=== PATIENT | female | born 1990 | race Caucasian/White ===

== ENCOUNTER 2017-04-19 21:49 | Outpatient (CLI) | payer MEDICAID ==
[~2017-04-19] VITALS: Ht 160 cm; Wt 87.9 kg
[2017-04-19 22:28] VITALS: Ht 160 cm; Wt 87.9 kg
[2017-04-19 22:29] VITALS: BP 100/62; PULSE 83; RESP 18
--- NOTE | 2017-04-19 23:10 | RADRPT ---
PROCEDURE: US biophysical profile. CLINICAL INDICATION: Decreased motion. TECHNIQUE: Multiple sonographic images of the uterus were obtained. The images were revi ewed on a PACS workstation. COMPARISON: No prior studies are available for comparison. FINDINGS: There is a single live intrauterine gestation. heart rate is 139 beats per minute. The position is cephalic. The placenta is anterior grade II with no abruption or previa. The MIGUEL ANGEL is 11.4 cm. (Normal = 5-20 cm.) Breathing Movement: 2 Gross Body Movement: 2 Tone: 2 Qualitative Amniotic Fluid Volume: 2 TOTAL: 8 IMPRESSION: 1. The biophysical score is 8/8. RPTAT: QQ .Kanu Hooper MD, MD Date Time Electronically viewed and signed by .Kanu Hooper MD, on 04/19/2017 23:09 .R/
[2017-04-19 23:40] LABS: BASOPHIL # 0.1 10^3/ul (0.0-0.1); BASOPHILS % 0.4 % (0.0-2.0); EOSINOPHILS # 0.1 10^3/ul (0.0-0.5); HEMATOCRIT 36.3 % (37.0-47.0); HEMOGLOBIN 12.6 g/dl (12.0-16.0); LYMPHOCYTES # 3.2 10^3/ul (0.8-2.9); LYMPHOCYTES % 28.1 % (15.0-51.0); MEAN CORPUSCULAR HEMOGLOBIN 31.4 pg (29.0-33.0); MEAN CORPUSCULAR HGB CONC 34.7 g/dl (32.0-37.0); MEAN CORPUSCULAR VOLUME 90.5 fl (82.0-101.0); MEAN PLATELET VOLUME 11.1 fl (7.4-10.4); MONOCYTES % 8.8 % (0.0-11.0); NEUTROPHILS % 61.4 % (39.0-77.0); PLATELET COUNT 291 10^3/UL (140-415); RED BLOOD COUNT 4.01 10^6/ul (4.20-5.40); RED CELL DISTRIBUTION WIDTH 12.4 % (11.5-14.5); WHITE BLOOD COUNT 11.5 10^3/ul (4.8-10.8)
[2017-04-19 23:44] LABS: ADD UMIC YES; UR ASCORBIC ACID NEGATIVE (NEGATIVE); UR BACTERIA FEW /HPF (NONE SEEN); UR BILIRUBIN (Dip) NEGATIVE (NEGATIVE); UR BLOOD (Dip) NEGATIVE (NEGATIVE); UR BUDDING YEAST FEW /HPF (NONE SEEN); UR CLARITY CLEAR (CLEAR); UR COLOR STRAW (YELLOW); UR GLUCOSE (Dip) NEGATIVE (NEGATIVE); UR KETONES (Dip) NEGATIVE (NEGATIVE); UR LEUKOCYTE ESTERASE (Dip) 2+ Leu/ul (NEGATIVE); UR NITRITE (Dip) NEGATIVE (NEGATIVE); UR RBC 1 /HPF (0-5); UR SPECIFIC GRAVITY (Dip) 1.003 (1.003-1.030); UR SQUAMOUS EPITHELIAL CELL FEW /HPF (FEW); UR TOTAL PROTEIN (Dip) NEGATIVE (NEGATIVE); UR UROBILINOGEN (Dip) NEGATIVE (NEGATIVE)
--- NOTE | 2017-04-20 01:15 | TRIAGE ---
OB Triage Datetime Report Generated by CPN: 04/20/2017 01:15 Datetime: 04/19/2017 22:48 Labor Evaluation Frequency: IRREGULAR Monitor Mode: External Quality: Mild Pattern: Normal: <= 5 Contractions in 10 Minutes Resting Tone Oyens: Relaxed Heart Rate FHR Baseline Rate: 145 Monitor Mode: External US FHR Baseline Changes: No Baseline Change Variability: Moderate 6-25 bpm Accelerations: 15X15 Decelerations: None Category: Category I Datetime: 04/19/2017 22:21 Stage of : OB Triage Arrived By: Wheelchair Arrived From: Home Chief Complaint: LL ABDONINAL PAIN Movement: Present Vaginal Bleeding: None Recent Sexual Intercouse: Denies Patient Complaints: None Time Provider Notified: 04/19/2017 22:19 Provider Notified: DR ALFARO (Annotations: Data stored by CPN on behalf of user) Initial Plan: EFM, CALL MD Maternal Assessment Level of Consciousness: Fully Conscious DTR's/Clonus: DTRs 2+; No Clonus Headache: Denies Blurred Vision: No Respiratory Effort: Unlabored; Regular Rhythm; Equal Expansion Breath Sounds, Left: Clear and Equal Breath Sounds, Right: Clear and Equal Nausea/Vomiting: Denies RUQ Epigastric Pain: Denies Lower Extremities Edema: None Degree: None Upper Extremities Edema: None Degree: None Facial Edema: None Temperature Route: Oral Fall Risk Assessment History of Falling: (0) No Secondary Diagnosis: (0) No Ambulatory Aid: (0) Bedrest/Nurse Assist IV Therapy: (0) No Gait: (0) Normal/Bedrest/Immobile Mental Status: (0) Oriented to Own Ability Fall Score: 0 Fall Risk Score Definition: No Risk: No action required Monitor Mode: External Monitor Mode: External US Pain Assessment Pain Scale: 8 Pain Presence: Constant Pain Type: Pressure Pain Location: Abdomen
--- NOTE | 2017-04-20 06:56 | PN ---
Triage Information Date/Time Reason for visit: Abdominal pain Weeks of Gestation 38 1/7 wks /Para Diabetes: none Hypertention: none Objective Vital Signs Date Time Temp Pulse Resp B/P Pulse Ox O2 Delivery O2 Flow Rate FiO2 04/19/17 22:29 97.6 83 18 100/62 Room Air Heart Rate: 140's Contractions: None Exam General: Patient appears well, alert and oriented, NAD, appropriate mood and affect ABD: gravid, soft, tender at LLQ. No tenderness other part of abdomen. No rebound or guarding. Back: No CVA tenderness (B/L) LE: No clubbing, cyanosis, edema, thigh or calf tenderness bilaterally FHT: 140 bpm , moderate variability with acceleration, no deceleration-category I Contractions: None Results/Medications Result Diagram: 04/19/17 2312 Results 24 hrs Disposition: Transfer to ER Assessment/Plan 27 Year-old with SIUP at 38 1/7 weeks with abdominal pain and nausea. - FHR: No sign of metabolic acidosis- Category I - Continuous EFM, toco - US performed and discussed with patient - Contractions: None. - Symptoms and sign of labor, preeclampsia, kick count discussed with patient, she voiced understanding. All of her questions answered. - Patient was transferred to ER for further evaluation SUSAN ALFARO Apr 20, 2017 06:56
== END 2017-04-20 00:20 | disposition home or self-care (01) ==
LOC: OBT 21:49 → L-D 21:52 → OBT 04-20 00:20
PROVIDERS: ATTEND Obstetrics & Gynecology
DX: O26.893 Other specified pregnancy related conditions, third trimester (principal); R10.32 Left lower quadrant pain; O21.0 Mild hyperemesis gravidarum; Z3A.38 38 weeks gestation of pregnancy
CPT/HCPCS: 76818; 81001; 85025; Z7500; G0463

== ENCOUNTER 2017-04-23 15:27 | Inpatient (IN) | payer MEDICAID ==
[~2017-04-23] VITALS: Ht 160 cm; Wt 89.0 kg
[2017-04-23 15:44] VITALS: BP 111/81; PULSE 102; Ht 160 cm; Wt 89.0 kg
[2017-04-23] MEDS ORDERED: PNV11TAB PO (15:46)
[2017-04-23] MEDS ORDERED: LIDOCAINE 1% (MPF) 30 ML INJ INJ PRN (16:00)
[2017-04-23] MEDS ORDERED: METHYLERGONOVINE 0.2 MG INJ IM PRN (16:00)
[2017-04-23] MEDS ORDERED: AMPICILLIN 2 GM/NS (PMX) 100 ML IV ONE (16:00)
[2017-04-23] MEDS ORDERED: BUTORPHANOL 2 MG INJ IV PRN ×2 (16:00)
[2017-04-23] MEDS ORDERED: OXYTOCIN 30 UNITS/LR 500 ML IV SCH (16:00)
[2017-04-23] MEDS ORDERED: CARBOPROST 250 MCG INJ IM PRN (16:00)
[2017-04-23] MEDS ORDERED: OXYTOCIN 30 UNITS/LR 500 ML IV PRN (16:00)
[2017-04-23] MEDS ORDERED: LACTATED RINGER'S 1,000 ML IV PRN (16:00)
[2017-04-23] MEDS ORDERED: MISOPROSTOL 200 MCG TAB PR PRN (16:00)
[2017-04-23 16:57] LABS: BASOPHILS % 0.2 % (0.0-2.0); EOSINOPHILS % 0.4 % (0.0-7.0); HEMATOCRIT 36.8 % (37.0-47.0); HEMOGLOBIN 12.7 g/dl (12.0-16.0); LYMPHOCYTES # 2.2 10^3/ul (0.8-2.9); LYMPHOCYTES % 23.6 % (15.0-51.0); MEAN CORPUSCULAR HEMOGLOBIN 31.1 pg (29.0-33.0); MEAN CORPUSCULAR HGB CONC 34.5 g/dl (32.0-37.0); MEAN CORPUSCULAR VOLUME 90.2 fl (82.0-101.0); MEAN PLATELET VOLUME 11.1 fl (7.4-10.4); MONOCYTE # 0.8 10^3/ul (0.3-0.9); MONOCYTES % 9.1 % (0.0-11.0); NEUTROPHIL # 6.2 10^3/ul (1.6-7.5); NEUTROPHILS % 66.4 % (39.0-77.0); PLATELET COUNT 274 10^3/UL (140-415); RED BLOOD COUNT 4.08 10^6/ul (4.20-5.40); RED CELL DISTRIBUTION WIDTH 12.8 % (11.5-14.5); WHITE BLOOD COUNT 9.3 10^3/ul (4.8-10.8)
[2017-04-23 17:13] LABS: INR 0.9; PROTIME 12.1 Sec (12.2-14.2); PT RATIO 0.9
[2017-04-23 17:14] LABS: PARTIAL THROMBOPLASTIN TIME 26.4 Sec (25.0-35.0)
[2017-04-23] MEDS: LACTATED RINGER'S 1,000 ML IV SCH ×2 (17:16→19:02)
[2017-04-23] MEDS ORDERED: FENTAnyl 2MCG/ML-ROPIV 0.2% 100 ML ONE (17:57)
[2017-04-23] MEDS ORDERED: FENTAnyl 2MCG/ML-ROPIV 0.2% 100 ML BAG EPI SCH (18:30)
[2017-04-23] MEDS ORDERED: ZOLPIDEM 5 MG TAB PO PRN (18:30)
[2017-04-23] MEDS ORDERED: DIPHENHYDRAMINE 50 MG INJ IV PRN (18:30)
[2017-04-23] MEDS ORDERED: ONDANSETRON 4 MG INJ IV PRN (18:30)
[2017-04-23] MEDS ORDERED: NALOXONE (0.4 MG/ML) INJ IV PRN (18:30)
--- NOTE | 2017-04-23 18:47 | HP ---
Date/Time of Note Date/Time of Note DATE: 04/23/17 TIME: 18:41 OB - History Hx of Present Free Text/Dictation 27 years old female 0010 EDC May 10, 2017 admitted to [facility] is 37 weeks and 4 in early labor pelvic examination on admission cervix 3 cm dilated 100% effaced vertex at -2 stay contraction mild to moderate 5-2 minutes apart, Chief Complaint: Labor contraction Estimated Due Date: May 10, 2017 : 2 Para: 0 Spontaneous : 1 Care: Good Care Ultrasounds: Normal mid trimester US Obstetrical Complications: None Medical Complications: None Past Family/Social History * Past Medical, Surgical, Family and Obstetric Histories reviewed from chart. Rubella: immune RPR/VDRL: Negative GBS Status: Negative OB Admission Exam Vital Signs Vital Signs Vital Signs Date Time Temp Pulse Resp B/P Pulse Ox O2 Delivery O2 Flow Rate FiO2 04/23/17 15:44 97.7 102 111/81 Physical Exam HEENT: WNL Heart: Rhythm Normal Lungs: Clear, Equal Abdomen: WNL Extremities: Normal Reflexes: Normal Cervical Dilatation: 3cm Effacement: 100% Station: -2 Membranes: Intact Heart Rate: 140's Accelerations: Accelerations Present Decelerations: No Decelerations Varibility: Moderate Contractions on Admission: 6-10 Minutes Apart Last 72 hours Lab Results CBC & BMP 04/23/17 16:30 OB Assessment/Plan Reason for admission: other (37 weeks 4 days admitted in early labor with cervical dilatation 3 cm 100% effacement vertex -2 station) Plan: Expectant Management TRERENCE MONSON MD Apr 23, 2017 18:47
[2017-04-23] MEDS: AMPICILLIN 1 GM/NS (PMX) 50 ML IV SCH (21:03)
[2017-04-24] MEDS: AMPICILLIN 1 GM/NS (PMX) 50 ML IV SCH ×3 (00:56→09:07)
[2017-04-24] MEDS: LACTATED RINGER'S 1,000 ML IV SCH ×4 (01:38→16:35)
[2017-04-24] MEDS ORDERED: FAMOTIDINE 20 MG INJ ONE (04:15)
[2017-04-24] MEDS ORDERED: FAMOTIDINE 20 MG INJ IV ONE (04:30)
[2017-04-24] MEDS ORDERED: PROCHLORPERAZINE 10 MG INJ IV ONE (05:30)
[2017-04-24] MEDS: OXYTOCIN 30 UNITS/LR 500 ML IV SCH ×3 (10:24→15:37)
--- NOTE | 2017-04-24 10:39 | LDN ---
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 deliver note, of a baby boy from OA position,placenta spontaneous expulsion meconium stain submitted to pathology. Weeks of Gestation 3 weeks / Placenta Delivered: Spontaneously, Intact & Complete Meconium: Light, Thick Episiotomy: No Anesthesia type: Epidural Sponge & Needle done & correct: Yes All needle counts correct: Yes Any foreign bodies felt in the: No Problems: Infant Delivery Information Sex Sex: male Apgars 1 Minute: 9 5 Minute: 9 Suctioning Nose & mouth suctioned at jv: Yes Delee suction performed: No Umbilical Cord Umbilical cord with: 3 Vessels Cord presentations: nuchal cord Nuchal cord present X: 1 Cord Blood was obtained: Yes TERRENCE MONSON MD Apr 24, 2017 10:35
[2017-04-24 11:30] VITALS: BP 109/67; PULSE 58; RESP 20
[2017-04-24 12:00] VITALS: BP 112/62; PULSE 68; RESP 20
[2017-04-24] MEDS ORDERED: OXYCODONE/ASPIRIN (4.88/325) TAB PO PRN (12:00)
[2017-04-24] MEDS ORDERED: HYDROCODONE/APAP (5/325) TAB PO PRN ×2 (12:00)
[2017-04-24] MEDS ORDERED: DIBUCAINE 1% 30 GM OINT PR PRN (12:00)
[2017-04-24] MEDS ORDERED: ONDANSETRON 4 MG INJ IV PRN (12:00)
[2017-04-24] MEDS ORDERED: ACETAMINOPHEN 325 MG TAB PO PRN (12:00)
[2017-04-24] MEDS ORDERED: LANOLIN 7 GM TUBE TOP PRN (12:00)
[2017-04-24] MEDS: BENZOCAINE 20% 56 ML SPRAY TOP PRN (12:24)
[2017-04-24] MEDS: WITCH HAZEL/GLYCERIN PAD PR PRN (12:24)
[2017-04-24] MEDS: IBUPROFEN 600 MG TAB PO SCH ×2 (12:24→17:28)
[2017-04-24] MEDS ORDERED: AMPICILLIN 1 GM/NS (PMX) 50 ML IV SCH (13:00)
[2017-04-24 16:07] VITALS: BP 99/62; PULSE 66
[2017-04-24 19:45] VITALS: BP 95/52; PULSE 91; RESP 18
[2017-04-24] MEDS: SENNA/DOCUSATE NA (8.6MG/50MG) TAB PO SCH (20:16)
[2017-04-24] MEDS: OXYCODONE/ASPIRIN (4.88/325) TAB PO PRN (20:16)
[2017-04-24 23:30] VITALS: BP 98/56; PULSE 89; RESP 18
[2017-04-25 04:15] VITALS: BP 102/62; PULSE 74; RESP 18
[2017-04-25] MEDS: OXYCODONE/ASPIRIN (4.88/325) TAB PO PRN (04:16)
[2017-04-25] MEDS: IBUPROFEN 600 MG TAB PO SCH ×5 (05:38→23:52)
[2017-04-25 08:00] VITALS: BP 103/58; PULSE 77; RESP 18
[2017-04-25 08:21] LABS: BASOPHILS % 0.3 % (0.0-2.0); EOSINOPHILS # 0.1 10^3/ul (0.0-0.5); EOSINOPHILS % 0.7 % (0.0-7.0); HEMATOCRIT 31.2 % (37.0-47.0); HEMOGLOBIN 10.6 g/dl (12.0-16.0); LYMPHOCYTES # 3.1 10^3/ul (0.8-2.9); LYMPHOCYTES % 22.4 % (15.0-51.0); MEAN CORPUSCULAR HEMOGLOBIN 31.2 pg (29.0-33.0); MEAN CORPUSCULAR VOLUME 91.8 fl (82.0-101.0); MEAN PLATELET VOLUME 11.1 fl (7.4-10.4); MONOCYTE # 0.9 10^3/ul (0.3-0.9); MONOCYTES % 6.6 % (0.0-11.0); NEUTROPHIL # 9.6 10^3/ul (1.6-7.5); NEUTROPHILS % 69.5 % (39.0-77.0); PLATELET COUNT 214 10^3/UL (140-415); RED CELL DISTRIBUTION WIDTH 12.9 % (11.5-14.5); WHITE BLOOD COUNT 13.9 10^3/ul (4.8-10.8)
[2017-04-25] MEDS: SENNA/DOCUSATE NA (8.6MG/50MG) TAB PO SCH ×2 (08:48→20:28)
--- NOTE | 2017-04-25 11:09 | QN ---
Documentation Comment normal vaginal delivery day 1 Afebrile Vital signs are stable Abdomen soft Uterus firm Lochia normal Extremity normal TERRENCE MONSON MD Apr 25, 2017 11:09
[2017-04-25 16:29] VITALS: BP 108/58; PULSE 80; RESP 20
[2017-04-25 19:30] VITALS: BP 109/57; PULSE 82; RESP 18
[2017-04-26 03:41] VITALS: BP 105/57; PULSE 67; RESP 18
[2017-04-26] MEDS: IBUPROFEN 600 MG TAB PO SCH (05:32)
[2017-04-26 08:00] VITALS: BP 107/55; PULSE 71; RESP 18
[2017-04-26] MEDS ORDERED: MEASLES,MUMPS,RUBELLA VACCINE INJ SC* ONE (09:00)
[2017-04-26] MEDS: SENNA/DOCUSATE NA (8.6MG/50MG) TAB PO SCH (09:24)
[2017-04-26] MEDS: WITCH HAZEL/GLYCERIN PAD PR PRN (09:24)
[2017-04-26] MEDS: BENZOCAINE 20% 56 ML SPRAY TOP PRN (09:24)
--- NOTE | 2017-04-26 10:17 | PD.PPDC ---
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
--- NOTE | 2017-04-26 10:20 | DS ---
Date/Time of Note Date/Time of Note DATE: 04/26/17 TIME: 10:18 Discharge Summary Admission/Discharge Info Admit Date/Time Apr 23, 2017 at 15:50 Discharge Date/Time April 26, 2017 at 10:30 AM Discharge Diagnosis Day 2 post normal vaginal delivery Patient Condition: Good Procedures Normal vaginal delivery Hx of Present Illness Term in labor Hospital Course Satisfactory recovery uneventful Home Meds Reported Medications [id number] ( 19) 1 Each Tablet, 1 TAB PO DAILY, TAB 04/23/17 Follow-up Plan instruction given recommended to make appointment to be seen at the clinic in 2 weeks Primary Care Provider Not On Staff Doctor Time spent on discharge: < 30 minutes TERRENCE MONSON MD Apr 26, 2017 10:20
== END 2017-04-26 12:05 | disposition home or self-care (01) | DRG 775 ==
LOC: OBT 15:27 → L-D 15:29 → OBT 15:50 → L-D 15:50 → PP1 04-24 11:26
PROVIDERS: ADMIT Obstetrics & Gynecology; ATTEND Obstetrics & Gynecology
PROC: 10E0XZZ Delivery of Products of Conception, External Approach (ICD-10-PCS; principal; 2017-04-23)
PROC: 3E0P3VZ Introduction of Hormone into Female Reproductive, Percutaneous Approach (ICD-10-PCS; 2017-04-23)
DX: O69.81X0 Labor and delivery complicated by cord around neck, without compression, not applicable or unspecified (principal); Z37.0 Single live birth; Z3A.37 37 weeks gestation of pregnancy
CPT/HCPCS: 62319; 85025; 85610; 85730; 86592; 86900; 86901; 87340; 88307; G0463; J0290; J0780; J2405; J2590; J3010; J7120